=== PATIENT | male | born 1935 | race Caucasian/White ===

== ENCOUNTER 2019-12-22 10:47 | Outpatient (CLI) | payer OTHER ==
[~2019-12-22 10:47] MED LIST: CIPRO500 MG PO; NORVASC5 MG PO; PROSCAR5 MG PO; TAMS0.4C PO
== END 2019-12-22 11:00 | disposition home or self-care (01) ==
LOC: LAB 10:47
PROVIDERS: ATTEND Urology
DX: N20.1 Calculus of ureter (principal); C61 Malignant neoplasm of prostate; E83.40 Disorders of magnesium metabolism, unspecified

== ENCOUNTER 2019-12-24 11:49 | Outpatient (CLI) | payer OTHER | END 2019-12-24 15:00 | disposition home or self-care (01) | LOC: LAB 11:49 | PROVIDERS: ATTEND Urology | DX: N20.1 Calculus of ureter (principal); C61 Malignant neoplasm of prostate; E83.40 Disorders of magnesium metabolism, unspecified ==

== ENCOUNTER 2023-06-14 07:35 | Outpatient (CLI) | payer OTHER ==
[2023-06-14] MEDS ORDERED: MAGNESIUM500 MG PO (14:03)
[2023-06-14] MEDS ORDERED: POTASSIUM CHLO20 ME1 PO (14:03)
== END 2023-06-14 07:36 | disposition home or self-care (01) ==
LOC: NUCLEAR 07:35
PROVIDERS: ATTEND Internal Medicine
DX: I25.119 Atherosclerotic heart disease of native coronary artery with unspecified angina pectoris (principal); I11.9 Hypertensive heart disease without heart failure; R07.9 Chest pain, unspecified
CPT/HCPCS: 78452; 93017; A9500; J0153

== ENCOUNTER 2023-06-26 05:45 | Day surgery (SDC) | payer OTHER ==
[2023-06-14 13:45] LABS: PH,URINE 7.5 (5.0-8.0); URINE APPEARANCE Cloudy; URINE BILIRRUBIN Negative (NEGATIVE); URINE COLOR Yellow; URINE GLUCOSE Negative (NEGATIVE); URINE LEUKOCYTE Negative; URINE NITRATE Negative; URINE PROTEIN Negative (NEGATIVE); URINE UROBILINOGEN 0.2 E.U./dl
[2023-06-14 13:46] LABS: URINE BACTERIA 23.9 uL (0.0-1933); URINE EPITHELIAL CELLS 2.1 uL (0.0-38.8); URINE RBC 73.7 uL (0.0-20.8); URINE WBC 8.3 uL (0.0-23.2)
[2023-06-14 13:52] LABS: URINE BLOOD TRACES
[2023-06-14 14:13] LABS: INR 0.99; PROTHROMBIN TIME 10.4 SECONDS (9.0-11.5)
[~2023-06-26] VITALS: Ht 165.1 cm; Wt 61.2 kg
[~2023-06-26 05:45] MED LIST changes: +MAGNESIUM500 MG PO; +POTASSIUM CHLO20 ME1 PO
== END 2023-06-26 13:20 | disposition home or self-care (01) ==
LOC: CIR.AMB 05:45
PROVIDERS: ATTEND Urology
DX: C67.9 Malignant neoplasm of bladder, unspecified (principal); Z88.0 Allergy status to penicillin; Z91.048 Other nonmedicinal substance allergy status; Z20.822 Contact with and (suspected) exposure to COVID-19